=== PATIENT | male | born 1960 | race Caucasian/White ===

== ENCOUNTER 2023-08-08 19:14 | Emergency (ER) | payer OTHER, SELFPAY ==
--- NOTE | ~2023-08-08 | XR_ITS ---
EXAMINATION: XR HIP, LEFT CLINICAL INFORMATION: Left hip pain COMPARISON: None available. TECHNIQUE: Single AP view of the pelvis Two views of the left hip. FINDINGS: No fracture. Alignment is anatomic. Hip joint space is maintained. Mild greater trochanteric enthesopathy on the left. Soft tissues are unremarkable. XR/XR hip LT w PEL1V IMPRESSION: No acute fracture or dislocation.
--- NOTE | ~2023-08-08 | XR_ITS ---
EXAMINATION: XR LUMBOSACRAL SPINE CLINICAL INFORMATION: Low back pain COMPARISON: None available. TECHNIQUE: Three views of the lumbosacral spine. FINDINGS: No acute fracture or traumatic malalignment. Mild loss of disc space height at L5-S1. Small endplate ossified throughout the lumbar spine. Facet arthropathy at L4-L5 and L5-S1. Mild bilateral sacroiliac arthritis. Paraspinal soft tissues unremarkable. Aorta is atherosclerotic. XR/XR lumbar spine 2-3V IMPRESSION: * No acute fracture or traumatic malalignment. * Lumbar spondylosis as described.
[2023-08-08 19:25] VITALS: BP 156/74; PULSE 83; O2SAT 99
[2023-08-08 19:29] VITALS: BP 175/94; PULSE 95; RESP 18; TEMP 36.5; O2SAT 98; BMI 21.8
--- NOTE | 2023-08-08 23:13 | ED.LOWEXIN ---
HPI - Extremity Injury (Lower) General Chief Complaint: Extremity Injury, Lower Stated Complaint: LEFT SIDED PAIN, ALERT AND ORIENTED Time Seen by Provider: 08/08/23 23:13 Source: patient, RN notes reviewed and old records reviewed Mode of arrival: ambulatory History of Present Illness HPI Narrative: 63-year-old male with no significant past medical history presenting to the ED complaining of left hip/low back pain radiating to neck and down left lower extremity x few days worsening today. Describes pain as electric shock with associated numbness/paresthesias. Admits to doing yard work yesterday/helping friend, denies known injury/trauma or fall. Has been taking ibuprofen at home without relief. Denies fever/chills, incontinence/retention, abdominal pain, dysuria Related Data Previous Rx's Medication Instructions Recorded acetaminophen 500 mg tablet 500 mg PO Q6H PRN fever or pain 08/09/23 (Tylenol Extra Strength) #14 tabs cyclobenzaprine 5 mg tablet 5 mg PO Q8H PRN pain (scale score 08/09/23 7-10) 5 days #14 tabs lidocaine 5 % topical patch 1 patch topical DAILY PRN pain #30 08/09/23 (Lidoderm) ea naproxen 500 mg tablet 500 mg PO BID PRN pain 10 days #20 08/09/23 tabs Allergies Allergy/AdvReac Type Severity Reaction Status Date / Time amoxicillin Allergy Anaphylaxis Verified 08/08/23 19:33 Review of Systems Review of Systems: Constitutional: No Fever, No Chills ENT/Mouth: No Ear Pain, No Nasal Congestion, No sore throat, No Rhinorrhea, No Swallowing Difficulty Cardiovascular: No Chest Pain, No SOB Respiratory: No Cough Gastrointestinal: No Nausea, No Vomiting, No Abdominal pain Genitourinary: No Dysuria, No Urinary Frequency, No Hematuria, No Urinary Incontinence/retention, No Flank Pain Musculoskeletal: + joint pain, No Myalgias, No Joint Swelling Skin: No Skin Lesions, No rash Neuro: No Weakness, +Numbness, + Paresthesias Yes all other systems are reviewed and are negative Constitutional: Constitutional: Reports as per HPI Neurologic: Denies Sensory deficit (Neuro) PMFSH Past Medical History Attestation statement: The following information was validated with the patient. Source: old records reviewed Social History Social History Advance Directives: No Advance Directives Information Provided: Yes Physical Exam Vital Signs: Vital Signs: Last Vital Signs Temp 97.7 F 08/08/23 19:29 Pulse 95 08/08/23 19:29 Resp 18 08/08/23 19:29 BP 175/94 H 08/08/23 19:29 Pulse Ox 98 08/08/23 19:29 O2 Del Method Room Air 08/08/23 19:29 BMI result Body Mass Index 21.8 Const: General: cooperative, healthy appearing and no acute distress Orientation/consciousness: patient oriented x3 Limitations: no limitations HEENT: Head: Yes normal to inspection and Yes atraumatic Ears: hearing grossly normal bilaterally General nose exam: Normal external nose present Face and sinus: Yes normal facial exam Eyes: General: appearance normal, both eyes and all related structures EOM: EOMs intact bilaterally Neck: Neck: Yes normal visual inspection and Yes no meningeal signs Resp: Effort & Inspection: normal respiratory effort and no respiratory distress Cardio: Rate: regular rate Peripheral pulses: Peripheral pulses 2+ throughout GI: Inspection: Yes normal to inspection Palpation (GI): Soft to palpation, nontender, no guarding and not rigid : General: Yes no CVA tenderness Back/Spine/Pelvis: Other: No midline cervical/thoracic/lumbar spinous tenderness/step-off or deformity. + of the lower lumbar paraspinal/MSK tenderness to palpation Back: no CVA tenderness Skin: Rashes: no rashes Wounds: no wounds Neuro: Other: Strength intact throughout. No saddle anesthesia. Sensation intact to light touch. Neurovascular intact distally General: patient oriented x3, gait normal, tone normal, moves all extremities, no meningeal signs and no focal motor deficits Cranial nerves: Yes CN's II-XII intact bilaterally Gait exam (Neuro): Normal gait present Motor exam (neuro): 5/5 motor strength present throughout Sensory Exam: No Sensory deficit (Neuro) Extrem: Other: Left hip nontender. No appreciable deformity. No erythema/warmth or crepitus. Full range of motion intact. General: Yes normal to inspection Course Course Course Narrative: XR lumbar spine 2-3V IMPRESSION: * No acute fracture or traumatic malalignment. * Lumbar spondylosis as described. XR hip LT w PEL1V IMPRESSION: No acute fracture or dislocation. > 0151--on re-evaluation patient was sleeping comfortably, when awoken reports mild symptomatic improvement. Ambulating with steady gait in the ED Results discussed with patient including worrisome signs and symptoms and strict return precautions, and when to return to the emergency department. They verbalized understanding and feel safe for discharge at this time. Medications Administered Discontinued Medications Generic Name Dose Route Start Last Admin Trade Name Sharath PRN Reason Stop Dose Admin Cyclobenzaprine HCl 10 mg 08/08/23 23:38 08/08/23 23:58 Cyclobenzaprine Hcl 10 Mg Tablet PO 08/08/23 23:39 10 mg ONCE ONE Administration Ketorolac Tromethamine 30 mg 08/08/23 23:38 08/08/23 23:57 Ketorolac Tromethamine 30 Mg/Ml Vial IM 08/08/23 23:39 30 mg ONCE ONE Administration Lidocaine 1 patch 08/08/23 23:38 08/08/23 23:57 Lidocaine 4 % Patch Adh..Patch TRANSDERMA 08/08/23 23:39 1 patch ONCE ONE Administration Protocol Medical Decision Making Medical Decision Making [facility] Narrative: 63-year-old male with no significant past medical history presenting to the ED complaining of left hip/low back pain radiating to neck and down left lower extremity x few days worsening today. On exam vital signs stable, NAD, nontoxic appearing, physical exam as noted above. No midline spinous tenderness throughout or red flag symptoms. Decided lower lumbar paraspinal/MSK tenderness to palpation. No appreciable hip deformity or decreased arm. Neurovascularly intact. No pitting edema. Concern MSK pain/strain and spasming vs herniated disc vs sciatica vs ? Fracture or sprain. Low suspicion for cauda equina/cord compression, epidural abscess, renal stone/pyelo or testicular torsion Plan: X-rays, pain control Please refer to course for remaining clinical decision making, interpretation of labs/imaging results, and discussions with consultants and/or family members. Differential Diagnosis Differential Diagnoses: The differential diagnosis associated with the presentation includes As above Admission/Observation Consideration of admission/observation: Escalation of care including admission/observation considered Lab Data [facility] Lab Attestation statement: I reviewed the patient's lab results. Radiology Impression Discussion of test interpretation with radiology: I have reviewed the radiologist's reading. External Record Review External record reviewed: Inpatient record, Office record, Outpatient record, Prior outpatient labs, Prior outpatient radiology, Primary care record and Outside ED record Tests considered The following testing was considered but not selected: As above Prescription Management I considered prescription management with: Pain Medication Discharge Plan Discharge Clinical Impression: Low back pain, Sciatica Patient Disposition: Home, Self-Care Instructions: Sciatica (ED), Acute Low Back Pain (ED) Additional Instructions: Your x-rays do not show any acute fracture or malalignment IT IS IMPORTANT YOU FOLLOW UP WITH ORTHOPEDIC SPINE Flexeril is a muscle relaxer, take at night as it makes you drowsy, do not drive, drink alcohol, or operate machinery while taking it Naproxen as an anti-inflammatory / pain medication, take with food Lidoderm patches are numbing patches, apply to painful area In addition take Tylenol at home If symptoms persist or worsen, pain becomes unbearable, you developed urinary retention or incontinence, or weakness return to the ED Prescriptions: New acetaminophen [Tylenol Extra Strength] 500 mg tablet 500 mg PO Q6H PRN (Reason: fever or pain) Qty: 14 0RF lidocaine [Lidoderm] 5 % adhesive patch,medicated 1 patch topical DAILY MDD remove after 12 hours PRN (Reason: pain) Qty: 30 0RF Rx Instructions: leave on most painful area for up to 12 hrs naproxen 500 mg tablet 500 mg PO BID PRN (Reason: pain) 10 Days Qty: 20 0RF cyclobenzaprine 5 mg tablet 5 mg PO Q8H PRN (Reason: pain (scale score 7-10)) 5 Days Qty: 14 0RF Referrals: [facility] [Provider Group] Physician,Unknown J [Primary Care Provider] - 3 days
[2023-08-08] MEDS: Ketorolac Tromethamine 30 MG/ML VIAL IM (23:57)
[2023-08-08] MEDS: Lidocaine 4 % Patch ADH..PATCH 1 PATCH TRANSDERMA (23:57)
[2023-08-08] MEDS: Cyclobenzaprine HCl 10 MG TABLET PO (23:58)
--- NOTE | 2023-08-09 01:22 | PC.NURSE ---
pt ambulatory with steady gait to bathroom and back to room. pt also ambulatory with steady gait to xray room and back.
[2023-08-09 01:30] VITALS: PULSE 60; RESP 16; O2SAT 98
== END 2023-08-09 01:30 | disposition home or self-care (01) ==
PROVIDERS: Emergency Provider Emergency Medicine Emergency Medical Services
DX: M54.30 Sciatica, unspecified side (principal); M54.50 Low back pain, unspecified; M25.552 Pain in left hip; M79.662 Pain in left lower leg
CPT/HCPCS: 72100; 73502; 96372; 99284; J1885